=== PATIENT | male | born 1990 | race Caucasian/White ===

== ENCOUNTER 2023-10-23 11:28 | Emergency (ER) | payer BC ==
[~2023-10-23] VITALS: Ht 177.8 cm; Wt 72.6 kg
[2023-10-23 11:38] VITALS: BP 125/74; TEMP 98
[2023-10-23 15:25] VITALS: O2SAT 97
== END 2023-10-23 15:25 | disposition home or self-care (01) ==
LOC: ER 12:20
DX: M79.644 Pain in right finger(s) (principal); M79.642 Pain in left hand; F17.200 Nicotine dependence, unspecified, uncomplicated; Z60.2 Problems related to living alone
CPT/HCPCS: 73130-TC; 73140-TC